=== PATIENT | male | born 1990 ===

== ENCOUNTER 2016-11-30 20:21 | Emergency (ER) | payer OTHER ==
--- NOTE | 2016-11-30 22:24 | DIAGNOSTIC IMAGING REPORT ---
PROCEDURE: XR CHEST 2 VIEW INDICATION: CHEST PAIN, initial encounter TECHNIQUE: PA and lateral view. COMPARISON: None. FINDINGS: Lungs are clear. Cardiovascular structures are normal. Bony thorax is unremarkable. IMPRESSION: 1. Negative chest.
--- NOTE | 2016-11-30 22:25 | DIAGNOSTIC IMAGING REPORT ---
PROCEDURE: CT ABDOMEN/PELVIS W/O CONTRAST INDICATION: Lifting injury 3 days ago with hematuria and right-sided pain, initial encounter TECHNIQUE: Noncontrast axial images were obtained of the entire abdomen and pelvis with sagittal and coronal reformations. COMPARISON: None. FINDINGS: ABDOMEN: Lung base are clear. Heart size is normal. Punctate nonobstructing right renal calculus. There are no additional urinary calculi. Liver, gallbladder, pancreas, spleen, adrenal glands and abdominal aorta are normal. Stomach distended with gastric contents. Stool throughout the large bowel. PELVIS: Normal appendix. No pelvic mass, inflammatory changes or free fluid. Mild degenerative changes of the spine. IMPRESSION: 1. Punctate nonobstructing right renal calculus 2. Stomach distended with gastric contents 3. Obstipation 4. Results discussed with CHARAN Martins All CT scans at this facility use dose modulation, iterative reconstruction, and/or weight-based dosing when appropriate to reduce radiation dose to as low as reasonably achievable.
--- NOTE | 2016-11-30 22:30 | ED NURSING NOTES ---
Clinical Report - Nurses [facility] [address] [place] [address] 11/30/2016 20:21 Patient: MATT FORRESTER TRIAGE Triage time 2031 PM. Acuity: LEVEL 5. Alert. No acute distress. BASILIO COMA SCORE: Basilio Coma Scale: 15- eyes open spontaneously (4); best verbal response- oriented x 4 (5); best motor response- obeys commands (6). --20:38 Akua Silva R.N. 20:31 11/30/16. BP: 123/71 (regular adult cuff) taken on the left arm, via an automated monitor, while sitting. HR: 81. RR: 12. O2 saturation: 100%. Temp: 98.3 F (oral). Pain level now: 04/28. --20:38 Akua Silva R.N. Chief Complaint: (Right side pain/upper abdomen). late entry - 20:31 PM. --22:44 Akua Silva R.N. Weight: 68 kg stated. Height/Length: 69 inches Per Patient. BMI: 22.2. --20:33 Akua Silva R.N. Medications None. --20:33 Akua Silva R.N. Medication/allergy information source: the patient. --20:38 Akua Silva R.N. Allergies No Known Drug Allergy. --20:33 Akua Silva R.N. History Arrived by private vehicle. Historian: patient. Primary physician (none). 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 Location of injuries: right breast. Occurred at work. No loss of consciousness. No headache, neck pain, back pain, numbness or weakness. 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 Trauma activation: Pre-hospital notification of patient arrival was not received. PAST MEDICAL HX: Tetanus status: unknown. Immunizations: status is unknown. SOCIAL HX: Never smoker. Occasional alcohol use; consumes liquor drinks. History of drug use: marijuana. (1 months). No infectious disease exposure. ABUSE ASSESSMENT: No report of abuse. SELF HARM ASSESSMENT: A self harm assessment was performed. The patient answered "no" to the question "Do you have thoughts of harming or killing yourself?" and "Have you recently had thoughts about harming or killing others?". FALL RISK ASSESSMENT: Fall risk assessment completed. No fall risk identified. NUTRITIONAL RISK ASSESSMENT: The nutritional risk assessment revealed no deficiencies. FUNCTIONAL ASSESSMENT: Functional assessment: no impairments noted. LEARNING NEEDS ASSESSMENT: The learning needs assessment revealed no barriers. SKIN INTEGRITY ASSESSMENT: Skin integrity risk assessment completed. No skin integrity risk identified. --20:38 Akua Silva R.N. PROBLEMS: Dental Caries. Dental Abscess. --20:34 Akua Silva R.N. ADDITIONAL SURGERIES: no known surgeries. Interventions ID band on patient. --20:38 Akua Silva R.N. PHYSICAL ASSESSMENT Ambulatory to room. GENERAL / NEURO / PSYCH: Alert. Oriented X 4. Appears in no acute distress. RESPIRATORY: Respirations not labored. Breath sounds within normal limits. CVS: Right breast area : tenderness. No laceration, abrasion, puncture wound, foreign body or deformity. GI / : Abdomen soft and nontender. EXTREMITIES: Extremities exhibit normal ROM. Neuro-vascular status intact to the extremity. SKIN: Skin intact. Skin is warm and dry. --20:38 Akua Silva R.N. NURSING PROGRESS NOTES The initial plan of care for this patient has been created This plan of care was discussed with the patient. Patient gowned. Warming measures: blanket applied. Reassurance given. Two patient identifiers checked. Call light placed in reach. Side rails up x 1. Bed placed in lowest position. Brakes of bed on. Brakes of chair on. FALL RISK ASSESSMENT: Fall risk assessment completed. No fall risk identified. --20:40 Akua Silva R.N. Patient ID band checked for patient name, birthdate and medical record number: patient confirmed. Clean catch urine collected with return of yellow-colored clear urine; sample sent to lab for urinalysis. Specimen labeled in the presence of the patient. Patient walked to radiology. Patient returned. (2046 PM). --20:46 Akua Silva R.N. DISPOSITION / DISCHARGE Departure time: 2342 PM. Condition at departure: stable. The goals identified in the patient's plan of care were met. No learning barriers present. Discharge instructions provided and reviewed with the patient. Reviewed warnings (pain management and follow-up with MD). Reviewed medication(s) side effects, precautions, dosing and course information. Prescription(s) given to the patient. Reviewed need for increased fluid intake. Activity restrictions (rest) reviewed. Work note given. Patient verbalized understanding. Written instructions provided in Solomon Islander. ( Pt verbalizes understanding of the importance of straining urine and taking meds, plus follow-up with MD). The patient was discharged by the physician chemical laboratory assistant. He was discharged home and unaccompanied at time of discharge. He left the Emergency Department ambulatory and via private vehicle. Patient driving. FALL RISK ASSESSMENT: Fall risk assessment completed. No fall risk identified. --22:43 Akua Silva R.N. 22:35 11/30/16. BP: 124/75 (regular adult cuff) taken on the left arm, via an automated monitor, while sitting. HR: 67. RR: 15. O2 saturation: 100% on room air. Temp: 98.3 F (oral). Pain level now: 04/28. --22:43 Akua Silva R.N. Locked/Released at 11/30/2016 22:44 by Akua Silva R.N.
--- NOTE | 2016-11-30 22:30 | ED CLINICAL REPORT ---
Clinical Report - Physicians/Mid Levels [facility] [address] [place] [address] 11/30/2016 20:21 Patient: MATT FORRESTER Time Seen: 2034. Arrived- By private vehicle. Historian- patient. HISTORY OF PRESENT ILLNESS Chief Complaint: FLANK PAIN. This started 5 days and is still present. It is described as "pain". No nausea, loss of appetite, vomiting or diarrhea. (Right flank pain, which patient believes it was associated with movement 5 days previously at work, while lifting heavy things. Pain worsens with movement. Denies any urgency or frequency or history of similar pain. Denies any nausea or vomiting. Denies any diarrhea or constipation. Denies any recent illness or fevers.). REVIEW OF SYSTEMS No constipation, black stools, difficulty with urination, pain with urination or fever. No headache, sore throat or chills. All systems otherwise negative, except as recorded above. SOCIAL HISTORY Never smoker. Alcohol use. History of drug use: GHB. Not an IV drug user. ADDITIONAL NOTES The nursing notes have been reviewed. PHYSICAL EXAM Vital Signs: 11/30/2016 20:31 BP: 123/71. HR: 81. RR: 12. O2 saturation: 100%. Temp: 98.3 F. Pain level now: 7/10. Appearance: Alert. Eyes: Eyes normal inspection. Neck: Normal inspection. CVS: Normal heart rate and rhythm. Heart sounds normal. Respiratory: No respiratory distress. Breath sounds normal. No accessory muscle use. Abdomen: Soft and nontender. Bowel sounds normal. No abdominal tenderness or rebound tenderness. Back: Normal inspection. Skin: Skin warm. Normal skin color. LABS, X-RAYS, AND EKG Abdominal CT: IMPRESSION: 1. Punctate nonobstructing right renal calculus 2. Stomach distended with gastric contents 3. Obstipation 4. Results discussed with CHARAN Martins All CT scans at this facility use dose modulation, iterative reconstruction, and/or weight-based dosing when appropriate to reduce radiation dose to as low as reasonably achievable. Electronically Final signed by:Cole Rodriguez MD 11/30/2016 10:24:55 PM. Laboratory Tests: UA-Culture if indicated: (LD: 11/30/2016 20:45) ( MsgRcvd 11/30/2016 20:59) Final results Test Result Flag Units (Reference) URINE COLOR YELLOW URINE APPEARANCE CLEAR URINE GLUCOSE NEGATIVE (NEGATIVE) URINE BILIRUBIN NEGATIVE (NEGATIVE) URINE KETONE NEGATIVE (NEGATIVE) URINE SPECIFIC GRAVITY 1.020 (1.010-1.030) URINE PH 6.0 (5.0-8.0) URINE PROTEIN NEGATIVE (NEGATIVE) URINE UROBILINOGEN 0.2 EU/dL (0.2-1.0) URINE NITRITE NEGATIVE (NEGATIVE) URINE BLOOD 1+ (NEGATIVE) URINE LEUK ESTERASE NEGATIVE (NEGATIVE) URINE RBC 5-10 rbc/hpf (0-1) URINE WBC NONE SEEN wbc/hpf (0-1) URINE EPITHELIAL CELLS RARE EPI/hpf (0-5) URINE BACTERIA NONE SEEN (NONE SEEN) URINE COMMENT CULT NOT INDICATED URINE CULTURES ARE SET-UP BASED ON THE FOLLOWING CRITERIA:POSITIVE NITRITEPOSITIVE LEUKOCYTE ESTERASEGREATER THAN 10 WHITE BLOOD CELLSMODERATE (2+) OR GREATER BACTERIA CBC w Diff: (LD: 11/30/2016 20:55) ( MsgRcvd 11/30/2016 21:06) Final results Test Result Flag Units (Reference) WHITE BLOOD COUNT 8.3 K/uL (4.5-11.5) RED BLOOD COUNT 4.95 M/uL (4.50-5.90) HEMOGLOBIN 15.4 gm/dL (13.5-17.5) HEMATOCRIT 45.3 % (41.0-53.0) MEAN CELL VOLUME 92 fL (80-100) MEAN CORPUSCULAR HGB 31 pg (26-34) MEAN CORPUSCULAR HGB CONC 34 g/dL (31-37) RED CELL DISTRIBUTION WIDTH 12.9 % (11.6-14.8) PLATELET COUNT 261 K/uL (150-400) NEUTROPHIL % 64.4 % (50-75) LYMPH % 27.1 % (25-40) MONO % 6.9 % (3-14) EOSINOPHIL % 1.2 % (0-4) BASOPHIL % 0.4 % (0-2) CMP: (LD: 11/30/2016 20:55) ( MsgRcvd 11/30/2016 21:30) Final results Test Result Flag Units (Reference) GLUCOSE 90 mg/dL (70-110) BUN 10 mg/dL (7-18) CREATININE 0.8 mg/dL (0.6-1.3) Estimated GFR >60 mL/min Estimated GFR- >60 mL/min Note: Persistent reduction over 3 months in eGFR<60 mL/min/1.73 m2 defines CKD. Patients with eGFR values>=60 mL/min/1.73 m2 may also have CKD if evidence ofpersistent proteinuria. Additional information may be foundat www.kidney.org. SODIUM 142 mmol/L (136-145) POTASSIUM 3.5 mmol/L (3.5-5.1) CHLORIDE 103 mmol/L (98-107) CARBON DIOXIDE 32 mmol/L (21-32) CALCIUM 8.9 mg/dL (8.5-10.1) TOTAL PROTEIN 7.6 g/dL (6.4-8.2) ALBUMIN 4.3 g/dL (3.3-5.0) BILIRUBIN, TOTAL 0.5 mg/dL (0.0-1.0) ALKALINE PHOSPHATASE 79 U/L (46-116) AST (SGOT) 20 U/L (15-37) ALT (SGPT) 28 U/L (12-78) . PROGRESS AND PROCEDURES Course of Care: Small right renal non obstructing stone present with small hematuria. pain is not reproducible on exam. Patient with no shortness of breath or chest pain, no recent illness. No signs of pyelonephritis. 2 have pain management at home and followed outpatient. Patient encouraged to increase his fiber, prune juice. 11/30/2016 22:35 BP: 124/75. HR: 67. RR: 15. O2 saturation: 100%. Temp: 98.3 F. Pain level now: 10. Patient is stable. Symptoms better. Patient/family counseled. Disposition: Discharged. CLINICAL IMPRESSION Right nephrolithiasis with renal colic. INSTRUCTIONS Do not work for three days. Drink plenty of fluids. Warnings: No further evaluation necessary. Prescription Medications: Ultram 50 mg: take 1 orally every 6 hours for 3 days, as needed for pain. Dispense fifteen (15). No refills. Substitution is permissible. Flomax 0.4 mg: take 1 orally every 24 hours. Dispense ten (10). No refills. Substitution is permissible. OTC Medications: Take acetaminophen (Tylenol, Datril, etc.) and ibuprofen (Advil, Nuprin, etc.) according to label instructions. Available over the counter. Follow-up: Follow up with doctor in three days. (Electronically signed by Corrina Menchaca P.A.-C 12/01/2016 0:23)
--- NOTE | 2016-11-30 22:30 | ED NURSING NOTES ---
Clinical Report - Nurses [facility] [address] [place] [address] 11/30/2016 20:21 Patient: MATT FORRESTER TRIAGE Triage time 2031 PM. Acuity: LEVEL 5. Alert. No acute distress. BASILIO COMA SCORE: Basilio Coma Scale: 15- eyes open spontaneously (4); best verbal response- oriented x 4 (5); best motor response- obeys commands (6). --20:38 Akua Silva R.N. 20:31 11/30/16. BP: 123/71 (regular adult cuff) taken on the left arm, via an automated monitor, while sitting. HR: 81. RR: 12. O2 saturation: 100%. Temp: 98.3 F (oral). Pain level now: 04/28. --20:38 Akua Silva R.N. Chief Complaint: (Right side pain/upper abdomen). late entry - 20:31 PM. --22:44 Akua Silva R.N. Weight: 68 kg stated. Height/Length: 69 inches Per Patient. BMI: 22.2. --20:33 Akua Silva R.N. Medications None. --20:33 Akua Silva R.N. Medication/allergy information source: the patient. --20:38 Akua Silva R.N. Allergies No Known Drug Allergy. --20:33 Akua Silva R.N. History Arrived by private vehicle. Historian: patient. Primary physician (none). 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 Location of injuries: right breast. Occurred at work. No loss of consciousness. No headache, neck pain, back pain, numbness or weakness. 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 Trauma activation: Pre-hospital notification of patient arrival was not received. PAST MEDICAL HX: Tetanus status: unknown. Immunizations: status is unknown. SOCIAL HX: Never smoker. Occasional alcohol use; consumes liquor drinks. History of drug use: marijuana. (1 months). No infectious disease exposure. ABUSE ASSESSMENT: No report of abuse. SELF HARM ASSESSMENT: A self harm assessment was performed. The patient answered "no" to the question "Do you have thoughts of harming or killing yourself?" and "Have you recently had thoughts about harming or killing others?". FALL RISK ASSESSMENT: Fall risk assessment completed. No fall risk identified. NUTRITIONAL RISK ASSESSMENT: The nutritional risk assessment revealed no deficiencies. FUNCTIONAL ASSESSMENT: Functional assessment: no impairments noted. LEARNING NEEDS ASSESSMENT: The learning needs assessment revealed no barriers. SKIN INTEGRITY ASSESSMENT: Skin integrity risk assessment completed. No skin integrity risk identified. --20:38 Akua Silva R.N. PROBLEMS: Dental Caries. Dental Abscess. --20:34 Akua Silva R.N. ADDITIONAL SURGERIES: no known surgeries. Interventions ID band on patient. --20:38 Akua Silva R.N. PHYSICAL ASSESSMENT Ambulatory to room. GENERAL / NEURO / PSYCH: Alert. Oriented X 4. Appears in no acute distress. RESPIRATORY: Respirations not labored. Breath sounds within normal limits. CVS: Right breast area : tenderness. No laceration, abrasion, puncture wound, foreign body or deformity. GI / : Abdomen soft and nontender. EXTREMITIES: Extremities exhibit normal ROM. Neuro-vascular status intact to the extremity. SKIN: Skin intact. Skin is warm and dry. --20:38 Akua Silva R.N. NURSING PROGRESS NOTES The initial plan of care for this patient has been created This plan of care was discussed with the patient. Patient gowned. Warming measures: blanket applied. Reassurance given. Two patient identifiers checked. Call light placed in reach. Side rails up x 1. Bed placed in lowest position. Brakes of bed on. Brakes of chair on. FALL RISK ASSESSMENT: Fall risk assessment completed. No fall risk identified. --20:40 Akua Silva R.N. Patient ID band checked for patient name, birthdate and medical record number: patient confirmed. Clean catch urine collected with return of yellow-colored clear urine; sample sent to lab for urinalysis. Specimen labeled in the presence of the patient. Patient walked to radiology. Patient returned. (2046 PM). --20:46 Akua Silva R.N. DISPOSITION / DISCHARGE Departure time: 2342 PM. Condition at departure: stable. The goals identified in the patient's plan of care were met. No learning barriers present. Discharge instructions provided and reviewed with the patient. Reviewed warnings (pain management and follow-up with MD). Reviewed medication(s) side effects, precautions, dosing and course information. Prescription(s) given to the patient. Reviewed need for increased fluid intake. Activity restrictions (rest) reviewed. Work note given. Patient verbalized understanding. Written instructions provided in Swedish. ( Pt verbalizes understanding of the importance of straining urine and taking meds, plus follow-up with MD). The patient was discharged by the physician field research assistant. He was discharged home and unaccompanied at time of discharge. He left the Emergency Department ambulatory and via private vehicle. Patient driving. FALL RISK ASSESSMENT: Fall risk assessment completed. No fall risk identified. --22:43 Akua Silva R.N. 22:35 11/30/16. BP: 124/75 (regular adult cuff) taken on the left arm, via an automated monitor, while sitting. HR: 67. RR: 15. O2 saturation: 100% on room air. Temp: 98.3 F (oral). Pain level now: 04/28. --22:43 Akua Silva R.N. Locked/Released at 11/30/2016 22:44 by Akua Silva R.N.
--- NOTE | 2016-11-30 22:30 | ED ORDER SUMMARY ---
..... Patient: MATT FORRESTER OrderSheet Located [facility] VisitID: [id number] [address] [place] [address] 26y, M Registration Date/Time: 11/30/2016 ORDER SHEET Weight: 68.0 kg (stated) Allergies: No Known Drug Allergy GENERAL ORDERS: Chest 2V Urgent (20:39 11/30/2016 EKoroleva P.A.-C) (20:41 EHassan R.N.) CBC w Diff Urgent (20:39 11/30/2016 EKoroleva P.A.-C) (20:41 EHassan R.N.) CMP Urgent (20:39 11/30/2016 EKoroleva P.A.-C) (20:41 EHassan R.N.) UA-Culture if indicated Urgent (20:39 11/30/2016 EKoroleva P.A.-C) (20:41 EHassan R.N.) CT Abd/Pel wo Cont Urgent (21:33 11/30/2016 EKoroleva P.A.-C) (Ack 21:38 ALawrence ER Tech1) (21:58 RFay) MEDICATION ORDERS: IV FLUIDS: ORDER SHEET NOTES: [Electronically signed by Akua Silva R.N. (22:44 11/30/2016)] [Electronically signed by Corrina Menchaca P.A.-C (00:23 12/01/2016)] [Electronically locked/signed by Akua Silva R.N. (22:44 11/30/2016)]
--- NOTE | 2016-11-30 22:30 | ED ORDER SUMMARY ---
..... Patient: MATT FORRESTER OrderSheet [facility] VisitID: [id number] [address] [place] [address] 26y, M Registration Date/Time: 11/30/2016 ORDER SHEET Weight: 68.0 kg (stated) Allergies: No Known Drug Allergy GENERAL ORDERS: Chest 2V Urgent (20:39 11/30/2016 EKoroleva P.A.-C) (20:41 EHassan R.N.) CBC w Diff Urgent (20:39 11/30/2016 EKoroleva P.A.-C) (20:41 EHassan R.N.) CMP Urgent (20:39 11/30/2016 EKoroleva P.A.-C) (20:41 EHassan R.N.) UA-Culture if indicated Urgent (20:39 11/30/2016 EKoroleva P.A.-C) (20:41 EHassan R.N.) CT Abd/Pel wo Cont Urgent (21:33 11/30/2016 EKoroleva P.A.-C) (Ack 21:38 ALawrence ER Tech1) (21:58 RFay) MEDICATION ORDERS: IV FLUIDS: ORDER SHEET NOTES: [Electronically signed by Akua Silva R.N. (22:44 11/30/2016)] [Electronically signed by Corrina Menchaca P.A.-C (00:23 12/01/2016)] [Electronically locked/signed by Akua Silva R.N. (22:44 11/30/2016)]
--- NOTE | 2016-12-01 00:24 | ED MED RECONCILIATION SUMMARY ---
Patient: MATT FORRESTER Medication Reconciliation Report [facility] VisitID: [id number] [address] [place] [address] 26y, M Registration Date/Time: 11/30/2016 Weight: 68.0 kg Height/Length: 69 in. BMI: 22.2 ALLERGIES: No Known Drug Allergy The patient's Home Medications are listed below: NONE. The source(s) of the original Home Medication information: patient The following Medications were given to the patient in the Emergency Department: None. The following Medications were prescribed to the patient: Take acetaminophen (Tylenol, Datril, etc.) and ibuprofen (Advil, Nuprin, etc.) according to label instructions. Available over the counter. -- Corrina Menchaca, P.A.-[place] Ultram 50 mg: take 1 orally every 6 hours for 3 days, as needed for pain. Dispense fifteen (15). No refills. Substitution is permissible. -- Corrina Menchaca, P.A.-C Flomax 0.4 mg: take 1 orally every 24 hours. Dispense ten (10). No refills. Substitution is permissible. -- Corrina Menchaca, P.A.-C
--- NOTE | 2016-12-01 00:24 | ED DISCHARGE INSTRUCTIONS ---
Patient: MATT FORRESTER General Instructions [facility] VisitID: [id number] [place] [address] 26y, M Registration Date/Time: 11/30/2016 Right nephrolithiasis with renal colic. INSTRUCTIONS Do not work for three days. Drink plenty of fluids. Warnings: No further evaluation necessary. Prescription Medications: Ultram 50 mg: take 1 orally every 6 hours for 3 days, as needed for pain. Dispense fifteen (15). No refills. Substitution is permissible. Flomax 0.4 mg: take 1 orally every 24 hours. Dispense ten (10). No refills. Substitution is permissible. OTC Medications: Take acetaminophen (Tylenol, Datril, etc.) and ibuprofen (Advil, Nuprin, etc.) according to label instructions. Available over the counter. Follow-up: Follow up with doctor in three days. ADDITIONAL INFORMATION Kidney Stone (W/ Colic) The sharp cramping pain and nausea/vomiting that you have is due to a small stone which has formed in the kidney and is now passing down a narrow tube (ureter) on its way to your bladder. Once it reaches your bladder, the pain will stop. The stone may pass in your urine stream in one piece. [The size may be 1/16" to 1/4" (1-6mm)]. Or, the stone may also break up into jerri fragments which you may not even notice. Once you have had a kidney stone, you are at risk for developing another one in the future. Home Care: Drink plenty of fluids (at least 8 to 10 glasses of water a day). Most stones will pass on their own, but may take from a few hours to a few days. Sometimes the stone is too large to pass by itself and special methods will have to be used to remove the stone. Each time you urinate, do so in a jar. Pour the urine from the jar through the strainer and into the toilet. Continue doing this until 24 hours after your pain stops. By then, if there was a kidney stone, it should pass from your bladder. Some stones dissolve into sand-like particles and pass right through the strainer. In that case, you wont ever see a stone. Save any stone that you find in the strainer and bring it to your doctor for analysis. It may be possible to prevent certain types of stones from forming. Therefore, it is important to know what kind of stone you have. Try to stay as active as possible since this will help the stone pass. Do not stay in bed unless your pain prevents you from getting up. You may notice a red, pink or brown color to your urine. This is normal while passing a kidney stone. Follow Up with your doctor or return to this facility if the pain lasts more than 48 hours. Get Prompt Medical Attention if any of the following occur: Pain that is not controlled by the medicine given Repeated vomiting or unable to keep down fluids Weakness, dizziness or fainting Fever of 100.4F (38C) or higher, or as directed by your healthcare provider Passage of solid red or brown urine (can't see through it) or urine with lots of blood clots Unable to pass urine for 8 hours and increasing bladder pressure Blood In The Urine Blood in the urine ("hematuria") has many possible causes. If it occurs after an injury (such as a car accident or fall), it is most often a sign of bruising to the kidney or bladder. Common medical causes of blood in the urine include urinary tract infection, kidney stone, inflammation, tumors, or certain other diseases of the kidney or bladder. Menstruation can cause blood to appear in the urine sample, although it is not coming from the urinary tract. If only a trace amount of blood is present, it will show up on the urine test, even though the urine may be yellow and not pink or red. This may occur with any of the above conditions, as well as heavy exercise or high fever. In this case, your doctor may want to repeat the urine test on another day. This will show if the blood is still present. If so, then other tests can be done to find out the cause. Home Care: If your urine does not appear bloody (pink, brown or red) then you do not need to restrict your activity in any way. If you can see blood in your urine, rest and avoid heavy exertion until your next exam. Do not use aspirin or anti-inflammatory medicine like ibuprofen (Motrin, Advil) or naproxen (Naprosyn, Aleve). These thin the blood and may increase bleeding. Follow Up with your doctor or as advised by our staff. If you were injured and had blood in your urine, you should have a repeat urine test in 1-2 days. Contact your doctor or return to this facility for this test. [NOTE: A radiologist will review any X-rays that were taken. We will notify you of any new findings that may affect your care.] Get Prompt Medical Attention if any of the following occur: Bright red blood or blood clots in the urine (if a new symptom) Weakness, dizziness or fainting New groin, abdominal or back pain Fever of 100.4F (38C) or higher, or as directed by your healthcare provider Repeated vomiting Bleeding from nose, gums or easy bruising You have been given the following additional information: Kidney Stone W/ Colic Hematuria Do not work for three days. (Electronically signed by Corrina Menchaca P.A.-C 12/01/2016 0:23)
--- NOTE | 2016-12-01 00:24 | ED MAR SUMMARY ---
..... Medication Administration Record [facility] [address], [place] [id number] Patient: MATT FORRESTER Visit ID: [id number] 26y, M Weight: 68.0 kg Height/Length: 69 in BMI: 22.2 ALLERGIES: No Known Drug Allergy
--- NOTE | 2016-12-01 00:24 | ED MED RECONCILIATION SUMMARY ---
Patient: MATT FORRESTER Medication Reconciliation Report [facility] VisitID: [id number] [address] [place] [address] 26y, M Registration Date/Time: 11/30/2016 Weight: 68.0 kg Height/Length: 69 in. BMI: 22.2 ALLERGIES: No Known Drug Allergy The patient's Home Medications are listed below: NONE. The source(s) of the original Home Medication information: patient The following Medications were given to the patient in the Emergency Department: None. The following Medications were prescribed to the patient: Take acetaminophen (Tylenol, Datril, etc.) and ibuprofen (Advil, Nuprin, etc.) according to label instructions. Available over the counter. -- Corrina Menchaca, P.A.-Tiago Ultram 50 mg: take 1 orally every 6 hours for 3 days, as needed for pain. Dispense fifteen (15). No refills. Substitution is permissible. -- Corrina Menchaca, P.A.-C Flomax 0.4 mg: take 1 orally every 24 hours. Dispense ten (10). No refills. Substitution is permissible. -- Corrina Menchaca, P.A.-C
--- NOTE | 2016-12-01 00:24 | ED MAR SUMMARY ---
..... Medication Administration Record [facility] [address], [place] [id number] Patient: MATT FORRESTER Visit ID: [id number] 26y, M Weight: 68.0 kg Height/Length: 69 in BMI: 22.2 ALLERGIES: No Known Drug Allergy
== END 2016-11-30 22:50 | disposition home or self-care (01) ==
LOC: ED SRH 20:21
DX: N20.0 Calculus of kidney (principal); N23 Unspecified renal colic
CPT/HCPCS: 90004; 90100; 95059